=== PATIENT | male | born 1955 | race Caucasian/White ===

== ENCOUNTER 2022-05-02 22:41 | Inpatient (IN) | payer MEDICARE, SELFPAY ==
[2022-05-02 22:58] VITALS: PULSE 52
--- NOTE | 2022-05-02 22:59 | XR_ITS ---
PROCEDURE INFORMATION: Exam: XR Chest Exam date and time: 05/03/2022 12:39 AM Age: 66 years old Clinical indication: Shortness of breath; Additional info: Chf TECHNIQUE: Imaging protocol: Radiologic exam of the chest. Views: 1 view. Total images: 1 COMPARISON: No relevant prior studies available. FINDINGS: Tubes, catheters and devices: EKG leads and extrinsic cardiac pacer pads. Lungs: Peribronchial cuffing. Medial right lung base confluent airspace opacification. Mild central vascular congestion and edema. Pleural spaces: Unremarkable. No pleural effusion. No pneumothorax. Heart/Mediastinum: Borderline cardiomegaly. No mediastinal widening. Vasculature: Atherosclerotic aortic arch. Bones/joints: Unremarkable. Intraperitoneal space: Multiple surgical clips upper abdomen. IMPRESSION: 1. Acute mild CHF/volume overload. 2. Confluent right basilar opacification concerning for pneumonia.
[2022-05-02 23:00] VITALS: BP 135/90; PULSE 33; PULSE 39; RESP 14; O2SAT 96; O2SAT 98; BMI 20.4
--- NOTE | 2022-05-02 23:00 | PC.NURSE ---
Addendum entered by Jacinta Frias RN 05/02/22 23:13: pt in third degree heart block, intermittent pvc's, pac's, and ventricular beats noted, HR irregular and 30-60's, bp stable, pt mentating appropriately; pt on 2LNC, sats mid-high 90's on 2LNC Original Note: pt admitted to 217 as a direct admit from [facility], pt on tele monitor and placed zoll pads on pt and have pt on monitor mode on zoll from the icu, pt has doherty in place present on arrival, pt aphasic but is from a previous stroke, nods yes/no appropriately, pt's son at bedside and call light within reach
[2022-05-02 23:38] LABS: POC Glucose,Bedside 145 (70-110)
--- NOTE | 2022-05-02 23:38 | PC.NURSE ---
pt's son brought home meds in, citalopram 40mg tab (take one half tablet by mouth once a day), atorvastatin 80mg tab (take 1 tab by mouth once daily at night), 81mg/low dose over the counter aspirin, nortriptylin 10mg cap (take 3 capsules by mouth at bedtime for neuropathic pain)
--- NOTE | 2022-05-02 23:43 | PC.NURSE ---
JEFF Silva at bedside and notified MD Ge of pt's beats of vtach on monitor, stated to activate sugar laboratory assistant for temporary pacemaker, notified Meeting Specialist MARCO to activate sugar laboratory assistant, YAHIR's shaving pt for procedure
[2022-05-02 23:48] LABS: Basophils # 0.1 K/mm3 (0-0.2); Basophils % 0.7 % (0.1-2.0); Eosinophils # 0.1 K/mm3 (0.0-0.4); Eosinophils % 0.7 % (0.1-12.0); Hematocrit 37.9 % (42.0-52.0); Hemoglobin 12.8 g/dL (14.1-18.0); Lymphocytes # 2.2 K/mm3 (0.7-4.5); Lymphocytes % 18.7 % (10-50); Mean Corpuscular HGB Conc 33.8 g/dL (31.8-35.4); Mean Corpuscular Hemoglobin 30.7 pg (27.0-31.2); Mean Platelet Volume 9.6 fl (7.4-10.4); Monocytes # 0.7 K/mm3 (0.1-1.0); Monocytes % 5.8 % (1.7-9.3); Neutrophils # 8.5 K/mm3 (1.8-7.8); Platelet Count 256 K/mm3 (142-424); Red Blood Count 4.16 M/mm3 (4.60-6.20); Red Cell Distribution Width 15.1 % (11.5-17.5); White Blood Count 11.5 K/mm3 (4.8-10.8)
[2022-05-02 23:54] LABS: Chloride 106 mmol/L (98-107); Sodium 138 mmol/L (136-145)
[2022-05-02 23:55] LABS: Potassium 4.3 mmoL/L (3.5-5.1)
[2022-05-02 23:57] LABS: Anion Gap 12.3 mEq/L (5-15); Blood Urea Nitrogen 38 mg/dl (9-20); Carbon Dioxide 24 mmol/L (22.0-30.0); Creatinine Clearance Estimated 61 mL/min (50-200); Estimated Glomerular Filt Rate 67 ml/min (>60); GFR (African American) 81 ML/MIN (>60)
[2022-05-02 23:58] LABS: Calcium 9.1 mg/dl (8.4-10.2); Chol/HDL Ratio 2.5 (1-3.5); Cholesterol 68 mg/dl (140-200); Glucose 137 mg/dl (74-100); HDL Cholesterol 27 mg/dl (40-60); Magnesium 1.9 mg/dl (1.6-2.3); Phosphorous 4.3 mg/dl (2.5-4.5); Triglycerides 91 mg/dl (30-150); VLDL Cholesterol 18 mg/dL (0-40)
[2022-05-03] VITALS (31 sets, daily range): BP systolic 89–155; BP diastolic 51–112; PULSE 52–85; RESP 16–31; TEMP 36.4–36.9; O2SAT 83–100; BMI 20.5
[2022-05-03] LABS: INR 1.12 (0.9-1.1)
[2022-05-03 00:07] LABS: NT Pro Brain Natriuretic Pep. 7000 pg/mL (0-125)
[2022-05-03 00:09] LABS: Direct LDL Cholesterol 34.07 mg/dL (100-129)
[2022-05-03 00:10] LABS: Troponin I 0.04 ng/ml (0.00-0.034)
--- NOTE | 2022-05-03 00:15 | EXP.HP ---
History of Present Illness *Admission Date: 05/02/22 *Reason for visit:: bradycardia *History of present illness: This is a 66-year-old male with a past medical history of T2DM, HTN, CVA with residual aphasia who presented to [facility] with complaints of generalized weakness. He reportedly fell 2 days ago striking his head and has felt generally weak since. He has also had a poor appetite with poor p.o. intake. Family reports that they have insisted that he come to the hospital over the past several days but he has refused. Today he decided that he would be seen. At presentation at the outside hospital he was noted to be in third-degree heart block. Blood pressure was stable at the time of presentation to the outside hospital. He was noted to have an elevated high-sensitivity troponin of 52 and an elevated BNP of around thousand. Dr. Ge with cardiology was consulted and recommended transfer here for further evaluation. On arrival here he is in no obvious distress. Heart rate in the 30s on the bedside monitor with multiple episodes of polymorphic V. tach. Dr. Ge immediately notified and opted for immediate temporary pacemaker placement. Patient will be taken to the Jewelry Making Instructor for temporary pacer. He currently has a normal blood pressure with systolic of 110. Mildly elevated troponin at 0.04. Patient is oxygenating well on 2 L and in no distress. [facility] Disclaimer: The information contained in this section may have been updated after the patient was seen, as this information can be updated by other users. Medical History (Updated 05/03/22 @ 01:23 by Jacinta Frias RN) Alcohol abuse Cancer of pancreas Gall bladder disease Stomach tumor (benign) Stroke Tobacco use Umbilical hernia Surgical History (Updated 05/03/22 @ 01:23 by Jacinta Frias RN) H/O Whipple procedure History of intestinal surgery Hx of cholecystectomy Social History (Updated 05/03/22 @ 01:24 by Jacinta Frias RN) Smoking Status: Current every day smoker alcohol intake: former current occupational status: other Travel in the last 8 weeks: None Review of Systems Review of Systems Review of systems:: pertinent systems reviewed and negative unless documented below Constitutional Constitutional: Reports as per HPI Eyes Eyes: Reports as per HPI ENT Ears, Nose, Mouth, and Throat: Reports as per HPI *Cardiovascular Cardiovascular: Reports as per HPI *Respiratory Respiratory: Reports as per HPI *Gastrointestinal Gastrointestinal: Reports as per HPI *Genitourinary Genitourinary: Reports as per HPI *Musculoskeletal Musculoskeletal: Reports as per HPI Integumentary/Breasts Skin/Breast: Reports as per HPI *Neurologic Neurologic: Reports as per HPI Psychiatric Psychiatric: Reports as per HPI Meds Home Medications and Allergies New Prescriptions to Start Prescriptions: Allergies Allergy/AdvReac Type Severity Reaction Status Date / Time No Known Allergies Allergy Verified 05/02/22 23:01 Exam Data for Last 24 hours Vital signs and Labs for Last 24 Hours: Pulse Resp BP Pulse Ox 39 L 14 135/90 98 05/02/22 23:00 05/02/22 23:00 05/02/22 23:00 05/02/22 23:00 Laboratory Results - last 24 hr 05/02/22 23:32: POC Glucose 145 H 05/02/22 23:35: WBC 11.5 H, RBC 4.16 L, Hgb 12.8 L, Hct 37.9 L, MCV 91.0, MCH 30.7, MCHC 33.8, RDW 15.1, Plt Count 256, MPV 9.6, Neut % (Auto) 74.0, Lymph % (Auto) 18.7, Morgan % (Auto) 5.8, Eos % (Auto) 0.7, Baso % (Auto) 0.7, Neut # (Auto) 8.5 H, Lymph # (Auto) 2.2, Morgan # (Auto) 0.7, Eos # (Auto) 0.1, Baso # (Auto) 0.1 05/02/22 23:35: PT 12.0, INR 1.12 H 05/02/22 23:35: Sodium 138, Potassium 4.3, Chloride 106, Carbon Dioxide 24, Anion Gap 12.3, BUN 38 H, Creatinine 1.10, Estimated Creat Clear 61, Estimated GFR 67, Est GFR ( Amer) 81, Glucose 137 H, Calcium 9.1, Phosphorus 4.3, Magnesium 1.9, Triglycerides 91, Cholesterol 68 L, LDL Cholesterol Direct 34.07 L, VL
--- NOTE | 2022-05-03 00:24 | IR_ITS ---
APPROVED REPORT Patient Location: Inpatient Forensic Toxicologist: MONSE Metzger RT (R) PROCEDURES Right internal jugular vein access Placement of temporary transvenous pacemaker INDICATION Third-degree AV block, Polymorphic ventricular tachycardia, Symptomatic bradycardia Informed consent was obtained prior to the procedure. COMPLICATIONS None Estimated Blood Loss: Less than 10 mls TECHNIQUE One percent lidocaine was used to anesthetize the right anterior aspect of the neck. A dba needle was used to identify the right internal jugular vein. Following this a larger cannulation needle was used to cannulate the right internal jugular vein and a wire was passed into the vein. A 5 Moldovan sheath was then placed into the right internal jugular vein. Under fluoroscopic guidance a temporary transvenous pacemaker was placed in the right ventricular apex. The transvenous pacemaker was placed at 80 bpm in a VVI mode with minimum sensitivity and maximum output. Patient captured in a one-to-one fashion. The sensitivity was then decreased to where he was capturing 100% at 3 mA. The voltage was then doubled to 6 mA and then the sheath was sewn into place and the transvenous pacemaker temporarily secured. Patient tolerated the procedure well with conscious sedation IMPRESSION Successful placement of temporary transvenous pacemaker for third-degree AV block and symptomatic bradycardia including polymorphic ventricular tachycardia PLAN 1. Discontinue Cardoza catheter as to avoid a nidus for infection 2. Echocardiogram Wednesday to determine if patient requires BACTERIOLOGIST FISHERY-D versus BACTERIOLOGIST FISHERY-P. Based on patient's large cardiac silhouette under fluoroscopy and presenting with pulmonary edema I suspect patient has a significant degree of LV dysfunction. 3. Continue supportive care Electronically signed by : Best Ge MD 05/03/2022 01:12:05
--- NOTE | 2022-05-03 00:31 | PC.NURSE ---
family at bedside, pt consented for label stitcher to get temporary pacemaker per MD Ge, pt being taken down now via Party Plan Selling Distributor MARCO to label stitcher with 2LNC on oxygen tank and zoll monitor and pads in place
--- NOTE | 2022-05-03 00:52 | PC.NURSE ---
2347- Luma called at this time to call in laboratory technician team for placement of temporary pace pacemaker 235- Received call backs from Omega and Babita 2354- Received call back from Rebekah 0036- Pt taken to laboratory technician by myself and TWAN Metcalf via stretcher with continues monitoring in place. Pt handed off to laboratory technician team.
--- NOTE | 2022-05-03 01:24 | INFXCTL.NOTE ---
PT ARRIVED TO FLOOR FROM DIGITAL MARKETING SPECIALIST
--- NOTE | 2022-05-03 02:05 | PC.NURSE ---
0130-pt back from computer lab assistant with external temporary pacemaker in place in Right IJ, sheath sutured in place, sensitivity 0, output 6, rate 80millamps, VVI mode, pt had 2mg of versed and 50mcg of fentanyl, HR paced at 82 with BBB upon arrival, pt on 2LNC and sats 96%, pt's family at bedside, pt restless from sedation
--- NOTE | 2022-05-03 02:17 | PC.NURSE ---
pt's son leaving for night, Olvin Rhodes,
[2022-05-03 03:51] LABS: Troponin I 0.05 ng/ml (0.00-0.034)
[2022-05-03 05:39] LABS: POC Glucose,Bedside 141 (70-110)
[2022-05-03 05:58] LABS: Troponin I 0.08 ng/ml (0.00-0.034)
[2022-05-03 06:46] LABS: Coronavirus 19, PCR Not Detected (NotDetected); Influenza A, PCR Not Detected (NotDetected); Influenza B, PCR Not Detected (NotDetected)
[2022-05-03 07:15] LABS: Basophils # 0.1 K/mm3 (0-0.2); Basophils % 0.5 % (0.1-2.0); Eosinophils # 0.1 K/mm3 (0.0-0.4); Eosinophils % 0.4 % (0.1-12.0); Hematocrit 43.2 % (42.0-52.0); Hemoglobin 13.8 g/dL (14.1-18.0); Lymphocytes # 1.9 K/mm3 (0.7-4.5); Lymphocytes % 11.2 % (10-50); Mean Corpuscular HGB Conc 31.8 g/dL (31.8-35.4); Mean Corpuscular Hemoglobin 29.4 pg (27.0-31.2); Mean Corpuscular Volume 92.4 fl (80-94); Mean Platelet Volume 9.2 fl (7.4-10.4); Monocytes % 5.9 % (1.7-9.3); Neutrophils # 13.7 K/mm3 (1.8-7.8); Platelet Count 259 K/mm3 (142-424); Red Blood Count 4.68 M/mm3 (4.60-6.20); Red Cell Distribution Width 15.4 % (11.5-17.5); White Blood Count 16.7 K/mm3 (4.8-10.8)
[2022-05-03 07:16] LABS: MANUAL DIFFERENTIAL MANUAL DIFFERENTIAL (MANUAL DIFF)
[2022-05-03 07:23] LABS: Anion Gap 10.2 mEq/L (5-15); Blood Urea Nitrogen 34 mg/dl (9-20); Calcium 8.6 mg/dl (8.4-10.2); Carbon Dioxide 26 mmol/L (22.0-30.0); Chloride 104 mmol/L (98-107); Creatinine Clearance Estimated 68 mL/min (50-200); Estimated Glomerular Filt Rate 75 ml/min (>60); GFR (African American) 90 ML/MIN (>60); Glucose 127 mg/dl (74-100); Potassium 4.2 mmoL/L (3.5-5.1); Sodium 136 mmol/L (136-145)
[2022-05-03 07:28] LABS: Lymphocytes % 15 % (10-50); Monocytes % 9 % (2-9); Neutrophils % 76 % (42-76); Platelet Estimate Normal; RBC Morphology Normal; Total Cells Counted 100
[2022-05-03 11:37] LABS: POC Glucose,Bedside 133 (70-110)
[2022-05-03 18:23] LABS: POC Glucose,Bedside 156 (70-110)
[2022-05-03 18:23] LABS: POC Glucose,Bedside 168 (70-110)
[2022-05-04] VITALS (26 sets, daily range): BP systolic 77–141; BP diastolic 51–100; PULSE 80–102; RESP 16–22; TEMP 36.4–36.9; O2SAT 90–97; BMI 19.5; BMI 19.4
--- NOTE | 2022-05-04 | IR_ITS ---
APPROVED REPORT Patient Location: Inpatient Code Number Stamper: MONSE Atkins RT (R) PROCEDURES 1. Pocket formation for biventricular pacemaker generator with cardiac resynchronization/defibrillator therapy. 2. Placement of atrial sensing and pacing lead into the right atrial appendage. 3. Placement of a right ventricular sensing, pacing and shocking lead in the right ventricular apex. 4. Placement of left ventricular sensing pacing lead via the coronary sinus. 5. Permanent cardiac resynchronization therapy with ICD implantation/biventricular pacemaker. INDICATION Systolic Congestive Heart Failure, ejection <35%, Wide QRS >120ms, Woodson Heart Assoication Class 3 Congestive Heart Failure, 3RD degree heart block Informed consent was obtained prior to the procedure. COMPLICATIONS None Estimated Blood Loss: less than 10 ml TECHNIQUE 1% Lidocaine with epinephrine used to anesthetized the left anterior aspect of the chest. Scalpel was used to make the initial cutaneous incision while electrocautery was used to dissect down tinto the fascia. The fascia was lifted off the pectoralis muscle and digitally manipulated creating a pocket for the defibrillator. The patient was then placed in Trendelenburg position and the subclavian vein was accessed 3 times via the Selinger technique. A 8 Malian sheath was placed under fluoroscopic guidance into the subclavian vein. The dilator was removed from the sheath. Using fluoroscopic guidance, the ventricular lead was placed into the right ventricular apex, screwed and secured into place. Electronic interrogation proved acceptable thresholds and voltage within the lead. Using 3-0 silk, the ventricular lead was then secured into place and sheath peeled away. Following this, a 9.5 Malian sheath and dilator was then placed over one of the wires while keeping the other wire in place within the subclavian vein. The dilator was removed from the sheath. Using fluoroscopic guidance, contrast was used to visualize the coronary sinus, the left ventricular lead was placed into the coronary sinus. Electronic interrogation proved acceptable thresholds and voltage within the lead. Using 3-0 silk, the left ventricular lead was then secured into place and sheath peeled away.An additional 6 Malian fresh sheath and dilator was placed over the existing wire. Using fluoroscopic guidance, the atrial lead was then placed into the right atrial appendage and screwed and secured in place. Electrical interrogation demonstrated acceptable thresholds and voltage number. The atrial lead was then secured into place using 3-0 silk and sheath peeled away. 1 gram of Ancef was used to flush the pocket. All 3 leads were connected to generator and tested via computer. The defibrillator then secured to the fascia. Monocryl was used to close the subcutaneous layers while marjorie were used to close the cutaneous layer. A pressure dressing was placed and the patient was transferred to the postop holding area in stable condition for postoperative care. INTERROGATION Generator Model number: [id number] Generator Serial number: [id number] Chronic Atrial lead model number: [id number]/52 Chronic Atrial lead serial number: [id number] Chronic Right Ventricular lead model number: [id number] Chronic Right Ventricular lead serial number: [id number] Left Ventricular lead model number: 1458Q/86 Left Ventricular lead serial number: [id number] R-wave: >12 mV 0.5 v @0.5 MS Impedence: 500 Ohms Threshold: 4.4 V Pacing Parameters: Mode: DDDR Base/Max Track: 70/120 bpm ICD Rate Cutoffs: VT: 175 bpm. 2.5 sec, AT
--- NOTE | 2022-05-04 00:32 | PC.NURSE ---
COURTESY ROUND PATIENT AWAKE LAYING BED . TRASH AND LINENS EMPTIED. WATER PITCHER REFILLED
--- NOTE | 2022-05-04 02:00 | PC.NURSE ---
0200 provider gretta Silva., on floor making rounds and was informed of pt with low b/p's noted 84-87 sbp and 46-59 dbp as documented, no new orders received at this time, pt is alert and oriented to name, no acute distress, paced rythm.
[2022-05-04 05:50] LABS: POC Glucose,Bedside 94 (70-110)
[2022-05-04 06:28] LABS: Basophils # 0.1 K/mm3 (0-0.2); Basophils % 0.7 % (0.1-2.0); Eosinophils # 0.4 K/mm3 (0.0-0.4); Hematocrit 41.9 % (42.0-52.0); Hemoglobin 13.8 g/dL (14.1-18.0); Lymphocytes % 25.1 % (10-50); Mean Corpuscular HGB Conc 32.9 g/dL (31.8-35.4); Mean Corpuscular Hemoglobin 29.5 pg (27.0-31.2); Mean Corpuscular Volume 89.6 fl (80-94); Mean Platelet Volume 9.1 fl (7.4-10.4); Monocytes # 0.8 K/mm3 (0.1-1.0); Monocytes % 6.6 % (1.7-9.3); Neutrophils # 7.8 K/mm3 (1.8-7.8); Neutrophils % 64.6 % (37.0-80.0); Platelet Count 271 K/mm3 (142-424); Red Blood Count 4.67 M/mm3 (4.60-6.20); Red Cell Distribution Width 15.2 % (11.5-17.5); White Blood Count 12.1 K/mm3 (4.8-10.8)
[2022-05-04 06:39] LABS: Alanine Aminotransferase 26 U/L (12-78); Albumin Level 3.4 g/dl (3.5-5.0); Albumin/Globulin Ratio 1.3 (1.1-1.8); Alkaline Phosphatase 139 U/L (38-126); Anion Gap 11.5 mEq/L (5-15); Aspartate Amino Transferase 27 U/L (17-59); Bilirubin,Total 1.6 mg/dl (0.2-1.3); Blood Urea Nitrogen 27 mg/dl (9-20); Calcium 8.1 mg/dl (8.4-10.2); Carbon Dioxide 28 mmol/L (22.0-30.0); Chloride 100 mmol/L (98-107); Creatinine Clearance Estimated 64 mL/min (50-200); Estimated Glomerular Filt Rate 84 ml/min (>60); GFR (African American) 102 ML/MIN (>60); Globulin 2.6 g/dL (1.3-3.2); Glucose 88 mg/dl (74-100); Magnesium 1.8 mg/dl (1.6-2.3); Phosphorous 3.5 mg/dl (2.5-4.5); Potassium 3.5 mmoL/L (3.5-5.1); Sodium 136 mmol/L (136-145)
--- NOTE | 2022-05-04 08:28 | CA_ITS ---
APPROVED REPORT EXAM: Comprehensive 2D, Doppler, and color-flow Echocardiogram Stenographic Court Reporter: Elizabeth Mercer RVT Ht: 5 ft 10 in Wt: 139lbs BSA: 1.79 BP: 135/90 mmHg Indications: 3RD DEGREE AV BLOCK,TEMP PACER IN PLACE,BRADYCARDIA,HX CVA,DM,SMOKER,CHF,HTN,ALCOHOL ABUSE TDS-PT FLAT ON BLACK AND BODY HABITUS 2D Dimensions LVOT 2.23 cm (M/F) 1.5-2.5 LA Volume 79.10 mL LA Volume Index 44.19 mL/m2 (M/F) 16-34 M-Mode Dimensions RVDd 3.30 cm (0.9-2.6) LA Diam 4.17 cm (1.9-4.0) LVDd 6.05 cm (3.5-5.7) Ao Diam 3.40 cm (2.0-3.7) LVDs 5.31 cm (3.5-5.7) IVSd 0.34 cm (0.6-1.1) PWd 0.39 cm (0.6-1.1) EF (Teich) 25.90% FS 12.20% EDV (Teich) 183.40 mL TAPSE 2.00 (<1.7) ESV (Teich) 135.90 mL LV Diastology E Decel Time 150.00 (160-240 msec) E/A Ratio 1.1 MED E' 3.30 (< 7 cm/sec) E'/MED E' Ratio 18.58 (>14) LAT E' 4.90 (<10 cm/sec) E/LAT E' Ratio 12.51 (>14) Aortic Valve AO Peak GR. 2.10 mmHg Mitral Valve MV E Max Jimmy. 61.00 (40-130 cm/s) MV A Velocity 54.00 (40-130 cm/s) E/A Ratio 1.14 MV Decel. Time 150.00 (160-240 ms) MV PHT 44.00 ms Pulmonary Valve PV Peak Velocity 80.00 (50-150 cm/s) Left Ventricle Technically very difficult study because of the patient factors and poor acoustic windows. Left atrium is mildly enlarged, left ventricle is normal size mild concentric left ventricular hypertrophy, estimated ejection fraction approximately 45%, there is abnormal septal motion, diastolic parameters are inconclusive. Right Ventricle Right atrium and right ventricular mildly enlarged with normal contractility, there is a pacemaker lead seen in right ventricle. Aortic Valve Aortic valve is minimally thickened and calcified without aortic stenosis aortic insufficiency. Mitral Valve Mitral valve is minimally thickened, there is trace mitral regurgitation. Tricuspid Valve Tricuspid valve grossly normal, there is trace tricuspid regurgitation, tricuspid regurgitation jet velocity is inadequate for calculation of the right ventricular systolic pressure. Pulmonic Valve Pulmonic valve is poorly visualized. Great Vessels Aortic root is normal size. Inferior vena cava is poorly visualized. Pericardium No significant pericardial effusion noted. Conclusion 1. Technically difficult and limited study. Mild biatrial normal, normal left ventricular size, estimated ejection fraction 45%, there is abnormal septal motion, diastolic parameters are inconclusive. 2. Mildly enlarged right ventricle with normal contractility, pacemaker leads in the right ventricle. 3. Trace mitral and tricuspid regurgitation. 4. No significant pericardial effusion noted. 5. Inferior vena cava is poorly visualized. Electronically signed by : Gm Mendez MD 05/05/2022 06:08:04
--- NOTE | 2022-05-04 10:14 | PC.NURSE ---
per dr reyes holding lasix until after pacemaker procedure. patient bp has been on lower end.
--- NOTE | 2022-05-04 10:22 | EXP.CARD.CON ---
History of Present Illness History of Present Illness Consult date: 05/04/22 Requesting physician: Swapna Ge Chief complaint: 3rd degree av block History of present illness: 66 year old white male with past medical hx significant for DM II, HTN, CVA with residual aphasia presented to [facility] with complaint of generalized weakness and fall over the past week associated with decreased po intake. Family encouraged patient to come to ER for evaluation but patient refused initially. Upon presentation to ER patient was found to be in complete heart block. High sensitivity trop was elevated to 52 and BNP 1000. Patient was transferred to [facility] for cardiology consult. Upon presentation [facility] patient was noted to be in 3rd degree heart block and was having multiple episodes of polymorphic v tach. Patient was taken to sanitation laborer and had temporary pacemaker placed. Initial trop here was 0.04 and trended up to 0.08. patient denies any complaints at this time. [facility] Disclaimer: The information contained in this section may have been updated after the patient was seen, as this information can be updated by other users. Medical History (Updated 05/03/22 @ 01:23 by Jacinta Frias RN) Alcohol abuse Cancer of pancreas Gall bladder disease Stomach tumor (benign) Stroke Tobacco use Umbilical hernia Surgical History (Updated 05/03/22 @ 01:23 by Jacinta Frias RN) H/O Whipple procedure History of intestinal surgery Hx of cholecystectomy Social History (Updated 05/04/22 @ 13:38 by Everett Figueroa CRNA) Smoking Status: Current every day smoker alcohol intake: former substance use type: denies use current occupational status: other Travel in the last 8 weeks: None Review of Systems Review of Systems Review of systems:: pertinent systems reviewed and negative unless documented below *Neurologic Neurologic: Reports as per HPI Exam Data for Last 24 hours Vital signs and Labs for Last 24 Hours: Temp Pulse Resp BP Pulse Ox FiO2 97.9 F 86 18 99/74 L 91 L 50 05/04/22 08:00 05/04/22 10:00 05/04/22 10:00 05/04/22 10:00 05/04/22 10:00 05/03/22 08:00 Laboratory Results - last 24 hr 05/03/22 11:28: POC Glucose 133 H 05/03/22 15:16: POC Glucose 156 H 05/03/22 16:19: POC Glucose 168 H 05/04/22 05:43: POC Glucose 94 05/04/22 05:44: WBC 12.1 H D, RBC 4.67, Hgb 13.8 L, Hct 41.9 L, MCV 89.6, MCH 29.5, MCHC 32.9, RDW 15.2, Plt Count 271, MPV 9.1, Neut % (Auto) 64.6, Lymph % (Auto) 25.1, Terry % (Auto) 6.6, Eos % (Auto) 3.0, Baso % (Auto) 0.7, Neut # (Auto) 7.8, Lymph # (Auto) 3.0, Terry # (Auto) 0.8, Eos # (Auto) 0.4, Baso # (Auto) 0.1 05/04/22 05:44: Sodium 136, Potassium 3.5, Chloride 100, Carbon Dioxide 28, Anion Gap 11.5, BUN 27 H, Creatinine 0.90, Estimated Creat Clear 64, Estimated GFR 84, Est GFR ( Amer) 102, Glucose 88 D, Calcium 8.1 L, Phosphorus 3.5, Magnesium 1.8, Total Bilirubin 1.6 H, AST 27, ALT 26, Alkaline Phosphatase 139 H, Total Protein 6.0 L, Albumin 3.4 L, Globulin 2.6, Albumin/Globulin Ratio 1.3 I & O for Last 24 hours: Intake & Output 05/01/22 05/02/22 05/03/22 05/04/22 23:59 23:59 23:59 23:59 Intake Total 600 / 600 0 / 0 Output Total 3550 / 3800 370 / 370 Balance -2950 / -3200 -370 / -370 Weight 146 lb 5 oz 147 lb 4 oz 139 lb 4 oz Constitutional Constitutional: no acute distress *Routine Respiratory Exam Respiratory: Present CTA bilaterally and symmetric chest movement *Routine Cardiovascular Exam Cardiovascular: Present RRR, Normal S1 and Normal S2 *Routine Abdominal Exam Abdominal: Present soft and normoactive bowel sounds; Absent tenderness *Routine Extremities Exam Extremities: Present full ROM and normal capillary refill; Absent edema *Routine Skin Exam Skin: Present intact, dry and warm Detailed Neck Exam: Thyroids Thyroid: Absent bruit Meds Home Medications and Allergies Home Medications Medication Instructions Recorded Confirmed Type
[2022-05-04 12:08] LABS: Chloride 102 mmol/L (98-107)
[2022-05-04 12:09] LABS: Potassium 3.3 mmoL/L (3.5-5.1); Sodium 135 mmol/L (136-145)
[2022-05-04 12:12] LABS: Anion Gap 9.3 mEq/L (5-15); Blood Urea Nitrogen 25 mg/dl (9-20); Calcium 8.1 mg/dl (8.4-10.2); Carbon Dioxide 27 mmol/L (22.0-30.0); Creatinine Clearance Estimated 64 mL/min (50-200); Estimated Glomerular Filt Rate 84 ml/min (>60); GFR (African American) 102 ML/MIN (>60); Glucose 92 mg/dl (74-100)
[2022-05-04 13:14] LABS: POC Glucose,Bedside 95 (70-110)
--- NOTE | 2022-05-04 13:37 | EXP.ANES.CKL ---
[facility] Disclaimer: The information contained in this section may have been updated after the patient was seen, as this information can be updated by other users. Medical History (Updated 05/03/22 @ 01:23 by Jacinta Frias RN) Alcohol abuse Cancer of pancreas Gall bladder disease Stomach tumor (benign) Stroke Tobacco use Umbilical hernia Surgical History (Updated 05/03/22 @ 01:23 by Jacinta Frias RN) H/O Whipple procedure History of intestinal surgery Hx of cholecystectomy Social History (Updated 05/03/22 @ 01:24 by Jacinta Frias RN) Smoking Status: Current every day smoker alcohol intake: former substance use type: denies use current occupational status: other Travel in the last 8 weeks: None [facility] Anesthesia Checklist Patient Identification Patient Identification: Arm Band Structural Data Admitted From: Inpatient Planned Operative Procedure/s: Biventricular Pacemaker/Defibrillator Placement Consent for Planned Operative Procedure(s) Verified: Yes Verified Documents: Surgical Consent and History and Physical NPO Status Verified Time NPO: 00:00 Additional verifications Anesthesia Reactions: No Airway Assessment C-Spine Mobility Assessed: Yes TMJ Mobility Assessed: Yes Dentition: Edentulous Neurological Assessment Level of Consciousness: Awake and Appropriate (Pt unable to talk but able to communicate by nodding and answering yes/no questions) Anesthesia Plan Anesthesia Risk discussed: Yes Anesthesia Plan: Verified ASA Class: IV Anesthesia Type: MAC
--- NOTE | 2022-05-04 13:38 | PC.NURSE ---
Report from grant gonzalez
--- NOTE | 2022-05-04 14:13 | PC.NURSE ---
Patient gone to open hearth laborer. Consent is not signed. Asked patient to verify name, he is aphasic and did not reply. Telephone number for son will not connect. Information given to the open hearth laborer RN.
--- NOTE | 2022-05-04 16:32 | XR_ITS ---
PROCEDURE INFORMATION: Exam: XR Chest Exam date and time: 05/04/2022 4:49 PM Age: 66 years old Clinical indication: Device placement; Cardiac defibrillator placementor adjustment; Additional info: Confirm pacemaker/aid placement TECHNIQUE: Imaging protocol: Radiologic exam of the chest. Views: 1 view. Total images: 1 COMPARISON: CR XR CHEST PORTABLE 05/03/2022 12:39 AM FINDINGS: Tubes, catheters and devices: AICD projects in satisfactory location. Lungs: Atelectatic and/or early infiltrative changes noted within the right lower lobe. Pleural spaces: No evidence of pneumothorax. No pleural effusions. Heart/Mediastinum: Unremarkable. No cardiomegaly. Diaphragm: There is nonspecific elevation of the right hemidiaphragm. Bones/joints: Unremarkable. IMPRESSION: 1. AICD projects in satisfactory location. 2. Atelectatic and/or early infiltrative changes noted within the right lower lobe. 3. No evidence of pneumothorax. 4. No pleural effusions.
--- NOTE | 2022-05-04 17:08 | PC.NURSE ---
report called from laborer golf course
--- NOTE | 2022-05-04 17:17 | PC.NURSE ---
Patient returned to room from labor and delivery nurse.
--- NOTE | 2022-05-04 19:30 | PC.NURSE ---
Called Dr. Ge. Patient pacer site dressing saturated, soft buldge at pacer placement site. Per Dr. Ge, firm manual pressure held for 15 minutes. No new drainage or bleeding noted to site.
--- NOTE | 2022-05-04 20:13 | EXP.ACUTE.PN ---
Subjective *Date: 05/04/22 *Time: 10:13 Interval history: Patient is pleasant on interview. Denies any chest pain. Heart currently paced with external pacemaker. Stable on room air. No nausea, vomiting, confusion. Expressive aphasia at baseline. Medical Exam Vital signs and Labs for Last 24 Hours: Vital Signs Temp Pulse Pulse Resp BP Pulse Ox 05/04/22 19:56 95 05/04/22 19:45 98.4 F 91 H 18 141/100 H 95 05/04/22 19:15 87 20 124/93 H 97 05/04/22 18:52 90 19 113/79 94 L 05/04/22 18:15 89 19 113/85 93 L 05/04/22 18:45 88 17 113/75 95 05/04/22 17:45 97.9 F 88 18 120/75 94 L 05/04/22 17:00 100 H 19 99/76 L 92 L 05/04/22 17:30 88 16 120/85 93 L 05/04/22 17:15 98.0 F 92 H 19 101/51 L 92 L 05/04/22 17:09 95 H 20 88/62 L 92 L 05/04/22 12:00 80 05/04/22 12:00 98.1 F 05/04/22 08:00 80 05/04/22 10:00 86 18 99/74 L 91 L 05/04/22 08:00 97.9 F 82 18 77/56 L 91 L 05/04/22 08:00 93 L 05/04/22 08:00 97.5 F L 05/04/22 06:00 83 16 94/56 L 94 L 05/04/22 04:00 80 05/04/22 04:00 98.5 F 05/04/22 05:00 82 16 90/62 L 94 L 05/04/22 04:00 83 95 05/04/22 04:00 83 16 91/66 L 93 L 05/04/22 00:00 80 05/04/22 03:00 83 20 87/59 L 93 L 05/04/22 02:00 83 19 86/65 L 94 L 05/04/22 01:00 83 20 115/69 90 L 05/04/22 00:00 97.8 F 05/04/22 00:00 83 19 96/65 L 93 L 05/03/22 23:00 83 18 89/65 L 94 L 05/03/22 22:00 82 18 108/62 L 91 L 05/03/22 21:00 83 18 112/72 96 05/03/22 20:45 97.6 F Intake and Output 05/04/22 05/04/22 05/04/22 07:59 15:59 23:59 Intake Total 0 / 0 Output Total 250 / 370 120 / 370 Balance -250 / -370 -120 / -370 Intake: Intake, Oral Amount 0 / 0 Output: Output, Urine Amount 0 / 0 Output, Urine Amount (Catheter) 250 / 370 120 / 370 Cardoza 250 / 370 120 / 370 Other: Number of Unmeasured Voids 0 Weight 63.163 kg 63.1 kg Patient Weight 05/04/22 23:59 Weight 63.1 kg Laboratory Results - last 24 hr 05/04/22 05:43: POC Glucose 94 05/04/22 05:44: WBC 12.1 H D, RBC 4.67, Hgb 13.8 L, Hct 41.9 L, MCV 89.6, MCH 29.5, MCHC 32.9, RDW 15.2, Plt Count 271, MPV 9.1, Neut % (Auto) 64.6, Lymph % (Auto) 25.1, [place] % (Auto) 6.6, Eos % (Auto) 3.0, Baso % (Auto) 0.7, Neut # (Auto) 7.8, Lymph # (Auto) 3.0, [place] # (Auto) 0.8, Eos # (Auto) 0.4, Baso # (Auto) 0.1 05/04/22 05:44: Sodium 136, Potassium 3.5, Chloride 100, Carbon Dioxide 28, Anion Gap 11.5, BUN 27 H, Creatinine 0.90, Estimated Creat Clear 64, Estimated GFR 84, Est GFR ( Amer) 102, Glucose 88 D, Calcium 8.1 L, Phosphorus 3.5, Magnesium 1.8, Total Bilirubin 1.6 H, AST 27, ALT 26, Alkaline Phosphatase 139 H, Total Protein 6.0 L, Albumin 3.4 L, Globulin 2.6, Albumin/Globulin Ratio 1.3 05/04/22 11:50: Sodium 135 L, Potassium 3.3 L, Chloride 102, Carbon Dioxide 27, Anion Gap 9.3, BUN 25 H, Creatinine 0.90, Estimated Creat Clear 64, Estimated GFR 84, Est GFR ( Amer) 102, Glucose 92, Calcium 8.1 L 05/04/22 12:17: POC Glucose 95 I & O for Labs for Last 24 Hours: Intake & Output 05/01/22 05/02/22 05/03/22 05/04/22 23:59 23:59 23:59 23:59 Intake Total 600 / 600 0 / 0 Output Total 3550 / 3800 370 / 370 Balance -2950 / -3200 -370 / -370 Weight 66.366 kg 66.791 kg 63.1 kg Constitutional: Present no acute distress Head: Present atraumatic and normocephalic ENT: Present normal exam Neck: Present normal inspection Comment:: pacer wires in right neck Respiratory: Present normal respiratory effort; Absent accessory muscle use, rhonchi, wheezes or crackles Cardiac: Present Reg Rate and Rhythm GI: Present soft and normal bowel sounds; Absent distention or tenderness Extremities: Present normal inspection and full ROM Skin: Present intact; Absent erythema Neuro: Present Grossly Intact, alert, awake and moves all extre
[2022-05-05] VITALS: PULSE 100
[2022-05-05 00:25] LABS: POC Glucose,Bedside 110 (70-110)
[2022-05-05 01:04] LABS: POC Glucose,Bedside 145 (70-110)
[2022-05-05 04:00] VITALS: BP 106/78; PULSE 95; PULSE 98; RESP 22; TEMP 36.8; O2SAT 92; BMI 19.4
[2022-05-05 05:31] LABS: POC Glucose,Bedside 113 (70-110)
--- NOTE | 2022-05-05 06:29 | PC.NURSE ---
No active bleeding noted to pacer site since manual pressure held at beginning of shift. VSS. Pt c/o pain at pacer site 1x and Percocet 5 was administered. Pt states favorable results. Pt had used urinal independently t/o night. Call light within reach.
[2022-05-05 06:35] LABS: Basophils # 0.1 K/mm3 (0-0.2); Basophils % 0.5 % (0.1-2.0); Platelet Count 234 K/mm3 (142-424); White Blood Count 12.2 K/mm3 (4.8-10.8)
[2022-05-05 06:43] LABS: Alanine Aminotransferase 19 U/L (12-78); Albumin Level 3.1 g/dl (3.5-5.0); Albumin/Globulin Ratio 1.2 (1.1-1.8); Alkaline Phosphatase 121 U/L (38-126); Anion Gap 7.6 mEq/L (5-15); Aspartate Amino Transferase 27 U/L (17-59); Bilirubin,Total 1.1 mg/dl (0.2-1.3); Blood Urea Nitrogen 24 mg/dl (9-20); Calcium 7.6 mg/dl (8.4-10.2); Carbon Dioxide 25 mmol/L (22.0-30.0); Chloride 103 mmol/L (98-107); Creatinine Clearance Estimated 64 mL/min (50-200); Estimated Glomerular Filt Rate 112 ml/min (>60); GFR (African American) 136 ML/MIN (>60); Globulin 2.5 g/dL (1.3-3.2); Glucose 108 mg/dl (74-100); Phosphorous 3.3 mg/dl (2.5-4.5); Potassium 3.6 mmoL/L (3.5-5.1); Sodium 132 mmol/L (136-145); Total Protein,Serum 5.6 g/dl (6.3-8.2)
[2022-05-05 06:44] LABS: Eosinophils # 0.2 K/mm3 (0.0-0.4); Lymphocytes % 16.7 % (10-50); Mean Corpuscular HGB Conc 33.2 g/dL (31.8-35.4); Mean Corpuscular Hemoglobin 30.1 pg (27.0-31.2); Mean Corpuscular Volume 90.6 fl (80-94); Mean Platelet Volume 8.8 fl (7.4-10.4); Monocytes # 0.9 K/mm3 (0.1-1.0); Monocytes % 7.6 % (1.7-9.3); Neutrophils % 73.3 % (37.0-80.0); Red Blood Count 4.19 M/mm3 (4.60-6.20)
[2022-05-05 06:45] LABS: Hemoglobin 12.6 g/dL (14.1-18.0)
[2022-05-05 07:43] VITALS: BP 115/75; PULSE 93; RESP 17; TEMP 36.8; O2SAT 92
[2022-05-05 08:00] VITALS: PULSE 88
--- NOTE | 2022-05-05 08:51 | EXP.DC.SUM ---
General Admission date:: 05/02/22 Discharge date: 05/05/22 HPI HPI HPI: This is a 66-year-old male with a past medical history of T2DM, HTN, CVA with residual aphasia who presented to [facility] with complaints of generalized weakness. He reportedly fell 2 days ago striking his head and has felt generally weak since. He has also had a poor appetite with poor p.o. intake. Family reports that they have insisted that he come to the hospital over the past several days but he has refused. Today he decided that he would be seen. At presentation at the outside hospital he was noted to be in third-degree heart block. Blood pressure was stable at the time of presentation to the outside hospital. He was noted to have an elevated high-sensitivity troponin of 52 and an elevated BNP of around thousand. Dr. Ge with cardiology was consulted and recommended transfer here for further evaluation. On arrival here he is in no obvious distress. Heart rate in the 30s on the bedside monitor with multiple episodes of polymorphic V. tach. Dr. Ge immediately notified and opted for immediate temporary pacemaker placement. Patient will be taken to the Dry Heat Cabinet Attendant for temporary pacer. He currently has a normal blood pressure with systolic of 110. Mildly elevated troponin at 0.04. Patient is oxygenating well on 2 L and in no distress. Hospital Course Hospital Course Hospital Course: 66-year-old male tolerated external pacer well, admitted for placement of BiV given third-degree heart block.? Taken to labor standards director for pacemaker placement 05/05.? Problems addressed as follows: Third-degree heart block Heart failure with reduced ejection fraction Admitted with polymorphic V. tach. Temporary pace maker placed by cardiology. Remained stable with paced rhythm. Cardiology consulted, appreciate their recommendations.? MAST MAKER-D placed 05/05. Heart rate well controlled. Continue medications lisinopril 2.5 mg daily, bisoprolol 5 mg daily, Lipitor 80 mg daily, aspirin 81 mg daily. Diuresed well with Lasix daily. Echocardiogram gram obtained, preliminary ejection fraction of 20 to 25%. Consider addition of aldactone and jardiance later. History of CVA Mood disorder Continued home nortriptyline, citalopram, statin. Improved rate control. Stable for discharge home. Follow-up with cardiology in coming weeks for further evaluation and adjustment. Exam Data for Last 24 hours Vital signs and Labs for Last 24 Hours: Temp Pulse Resp BP Pulse Ox FiO2 98.3 F 93 H 17 115/75 92 L 50 05/05/22 07:43 05/05/22 07:43 05/05/22 07:43 05/05/22 07:43 05/05/22 07:43 05/03/22 08:00 Laboratory Results - last 24 hr 05/03/22 22:38: POC Glucose 145 H 05/04/22 11:50: Sodium 135 L, Potassium 3.3 L, Chloride 102, Carbon Dioxide 27, Anion Gap 9.3, BUN 25 H, Creatinine 0.90, Estimated Creat Clear 64, Estimated GFR 84, Est GFR ( Amer) 102, Glucose 92, Calcium 8.1 L 05/04/22 12:17: POC Glucose 95 05/04/22 21:17: POC Glucose 110 05/05/22 05:24: POC Glucose 113 H 05/05/22 05:37: WBC 12.2 H, RBC 4.19 L, Hgb 12.6 L, Hct 38.0 L, MCV 90.6, MCH 30.1, MCHC 33.2, RDW 15.0, Plt Count 234, MPV 8.8, Neut % (Auto) 73.3, Lymph % (Auto) 16.7, [place] % (Auto) 7.6, Eos % (Auto) 2.0, Baso % (Auto) 0.5, Neut # (Auto) 9.0 H, Lymph # (Auto) 2.0, [place] # (Auto) 0.9, Eos # (Auto) 0.2, Baso # (Auto) 0.1 05/05/22 05:37: Sodium 132 L, Potassium 3.6, Chloride 103, Carbon Dioxide 25, Anion Gap 7.6, BUN 24 H, Creatinine 0.70 D, Estimated Creat Clear 64, Estimated GFR 112, Est GFR ( Amer) 136 D, Glucose 108 H, Calcium 7.6 L, Phosphorus 3.3, Total Bilirubin 1.1, AST 27, ALT 19 D, Alkaline Phosphatase 121, Total Protein 5.6 L, Albumin 3.1 L, Globulin 2.5, Albumin/Globulin Ratio 1.2 I & O for Last 24 hours: Intake & Output 05/02/22 05/03/22 05/04/22 05/05/22 23:59 23:59 23:59 23:59 Intake Total 600 / 600 0 / 0 240 / 240 Output Total 3550 / 3800 580 / 580 150 / 150 Balance -2950 / -3200
--- NOTE | 2022-05-05 09:17 | EXP.CARD.PN ---
Subjective Subjective Date: 05/05/22 Time: 08:30 Principal diagnosis: 3rd degree heart block Interval history: Doing well s/p supervisor mold shop-d placement. Small hematoma noted to site but no bleeding. AM labs reviewed. patient has not complaints. Exam Data for Last 24 hours Vital signs and Labs for Last 24 Hours: Temp Pulse Resp BP Pulse Ox FiO2 98.3 F 93 H 17 115/75 92 L 50 05/05/22 07:43 05/05/22 07:43 05/05/22 07:43 05/05/22 07:43 05/05/22 07:43 05/03/22 08:00 Laboratory Results - last 24 hr 05/03/22 22:38: POC Glucose 145 H 05/04/22 11:50: Sodium 135 L, Potassium 3.3 L, Chloride 102, Carbon Dioxide 27, Anion Gap 9.3, BUN 25 H, Creatinine 0.90, Estimated Creat Clear 64, Estimated GFR 84, Est GFR ( Amer) 102, Glucose 92, Calcium 8.1 L 05/04/22 12:17: POC Glucose 95 05/04/22 21:17: POC Glucose 110 05/05/22 05:24: POC Glucose 113 H 05/05/22 05:37: WBC 12.2 H, RBC 4.19 L, Hgb 12.6 L, Hct 38.0 L, MCV 90.6, MCH 30.1, MCHC 33.2, RDW 15.0, Plt Count 234, MPV 8.8, Neut % (Auto) 73.3, Lymph % (Auto) 16.7, [place] % (Auto) 7.6, Eos % (Auto) 2.0, Baso % (Auto) 0.5, Neut # (Auto) 9.0 H, Lymph # (Auto) 2.0, [place] # (Auto) 0.9, Eos # (Auto) 0.2, Baso # (Auto) 0.1 05/05/22 05:37: Sodium 132 L, Potassium 3.6, Chloride 103, Carbon Dioxide 25, Anion Gap 7.6, BUN 24 H, Creatinine 0.70 D, Estimated Creat Clear 64, Estimated GFR 112, Est GFR ( Amer) 136 D, Glucose 108 H, Calcium 7.6 L, Phosphorus 3.3, Total Bilirubin 1.1, AST 27, ALT 19 D, Alkaline Phosphatase 121, Total Protein 5.6 L, Albumin 3.1 L, Globulin 2.5, Albumin/Globulin Ratio 1.2 I & O for Last 24 hours: Intake & Output 05/02/22 05/03/22 05/04/22 05/05/22 23:59 23:59 23:59 23:59 Intake Total 600 / 600 0 / 0 240 / 240 Output Total 3550 / 3800 580 / 580 150 / 150 Balance -2950 / -3200 -580 / -580 90 / 90 Weight 146 lb 5 oz 147 lb 4 oz 139 lb 1.787 oz 139 lb Constitutional Constitutional: no acute distress *Routine Respiratory Exam Respiratory: Present CTA bilaterally and symmetric chest movement *Routine Cardiovascular Exam Cardiovascular: Present RRR, Normal S1 and Normal S2 Comments: Implant site-small hematoma, no active bleeding. *Routine Abdominal Exam Abdominal: Present soft and normoactive bowel sounds; Absent tenderness *Routine Extremities Exam Extremities: Present full ROM and normal capillary refill; Absent edema *Routine Skin Exam Skin: Present intact, dry and warm Detailed Neck Exam: Thyroids Thyroid: Absent bruit Progress Note: A&P Assessment and plan (1) Third degree heart block: Status: Acute (2) T2DM (type 2 diabetes mellitus): Status: Acute (3) History of CVA (cerebrovascular accident): Status: Acute Assessment and Plan Assessment and Plan for All Diagnoses:: Complete heart block -3rd degree block noted with multiple episodes of polymorphic vtach -currently has temp pacemaker -Prelim echo shows an estimated EF of 20-25% -Plan to proceed with CTR-D placement today -Patient will need ischemic workup during hospital stay or as outpatient 05/05/2022: s/p supervisor mold shop-d implant. NSR rate of 93 noted. Acute HFrEF-presumed new -Mild chf/volume overload noted on chest xray. Patient was given Lasix and is -2470 -Start Entresto and BB with BP will tolerate. Add aldactone and jardiance later. 05/05/2022: Official echo read- EF 45 with abnormal septal wall motion noted. Start lisinopril 2.5mg daily and bisoprolol 10mg daily. Add jardiance and aldactone at office follow up. Patient needs outpatient ischemic workup. Multiple episodes of NSVT -Currently has temp pacemaker -Anticipate need for bb or antiarrhythmic s/p device placement 05/05/2022: no further events noted. S/p device placement, see above. will start bisoprolol 10mg po daily. DM II -Defer to pcp CVA -Continue statin and aspirin. CV summary 05/05/2022: CV stable for discharge home. Patient is to follow-up in cardiology clinic in 1 week for reevaluation. At
[2022-05-05 11:13] VITALS: BP 90/60; PULSE 89; RESP 20; TEMP 36.9; O2SAT 94
--- NOTE | 2022-05-06 13:42 | CARE MANAGER ---
Attempted post-discharge, phone interview unable to reach this patient as phone number says unreachable.
== END 2022-05-05 18:41 | disposition home or self-care (01) | DRG 242 ==
PROVIDERS: Internal Medicine; Nurse Practitioner Acute Care; Admitting Provider Student in an Organized Health Care Education/Training Program; PCP Family Medicine; Visit Provider Student in an Organized Health Care Education/Training Program
PROC: 5A1223Z Performance of Cardiac Pacing, Continuous (ICD-10-PCS; principal; 2022-05-03 00:30)
PROC: 0JH609Z Insertion of Cardiac Resynchronization Defibrillator Pulse Generator into Chest Subcutaneous Tissue and Fascia, Open Approach (ICD-10-PCS; CPT 33249; principal; 2022-05-04 10:30)
DX: I44.2 Atrioventricular block, complete (principal); I50.21 Acute systolic (congestive) heart failure; E11.9 Type 2 diabetes mellitus without complications; I69.320 Aphasia following cerebral infarction; Z85.07 Personal history of malignant neoplasm of pancreas; F39 Unspecified mood [affective] disorder; I11.0 Hypertensive heart disease with heart failure; F17.200 Nicotine dependence, unspecified, uncomplicated; I47.29 Other ventricular tachycardia
CPT/HCPCS: 33208; 33210; 33225; 36415; 71045; 80048; 80053; 80061; 82962; 83735; 83880; 84100; 84439; 84443; 84484; 85007; 85025; 85610; 93306; 99152; 99153; 99285; C1725; C1769; C1882; C1894; C1895; C1898; C1900; C9803; Q9967; U0003; U0005

== ENCOUNTER → 2022-06-12 06:27 | Outpatient (CLI) | payer MEDICARE, SELFPAY ==
--- NOTE | 2022-06-12 | CA_ITS ---
APPROVED REPORT Exam: Exercise Treadmill Technologist: Jazmine Montes, Ht: 5 ft 11 in Wt: 141 lbs BSA: 1.82 m2 HR: 77 bpm BP: 170/84 mmHg Rhythm: paced rhythm Medical History Medications: Lisinopril,,,,, Aspirin,,,,, Atorvastatin,,,,, Citalopram,,,,, BisOPROLOL Fumarate,,,,, OxYCODONE acetaminophen,,,,, Nortiptyline,,,,, Cardiac Risk Factors: Smoking Stress Test Details Test: LEXISCAN HR Resting HR: 79 bpm Max Heart Rate (APMHR): 153.182503 bpm Max HR Achieved: 99 bpm Target HR (85% APMHR): 130.537968 bpm % of APMHR: 64.71 Recovery HR: 88 bpm BP Resting BP: 170/84 mmHg Max BP: 170/84 mmHg Recovery BP: 147.0/76.0 mmHg ECG Resting ECG: paced rhythm Clinical Exercise duration: 04:02 min Highest Stage Achieved: Exercise capacity: 1.0 METs Stress ECG Conclusion During lexiscan pt experinced no symptoms. Paced rhythm. Non diagnostic EKG. Test Summary REST . . . . . . . Sitting REST 04:41 . . 79 . 170/ 84 . . Stage 1 01:00 . . 90 . . . . Stage 2 01:00 . . 96 . . . . Stage 3 01:00 . . 94 . 146/ 77 . . Stage 4 01:00 . . 90 . 155/ 78 . . Stage 4 01:02 . . 90 . 155/ 78 . Stop exercise at 04:02 RECOVERY 01:00 . . 90 . . . . RECOVERY 02:00 . . 87 . 147/ 76 . . RECOVERY 03:00 . . 87 . 156/ 78 . . RECOVERY 03:57 . . 0 . 156/ 78 . . Electronically signed by : Best Ge MD 06/17/2022 08:12:33
--- NOTE | 2022-06-12 06:33 | NM_ITS ---
APPROVED REPORT Exam: Nuclear Stress Test Indication: DM, FM HX, PACEMAKER, ABN EKG, HEART BLOCK Patient Location: Outpatient Stress Tech: Celerickie Murphy [place] Tech:Sophie PepeMONSE RT(R)(N) Ht: 5 ft 11 in Wt: 140 lbs HR: 79+ bpm BP: 170/84 mmHg BSA: 1.81 m2 TID: 1.21 BMI: 19.5 History: DM, FM HX, PACEMAKER, ABN EKG, HEART BLOCK Procedure: Patient received 0.4 mg of intravenous Lexiscan, resting heart rate 79 bpm, resting blood pressure 170/84 mmHg, with Lexiscan maximum heart rate achieved was 96 bpm which is % of the maximum predicted heart rate and blood pressure was 146/77 mmHg. With Lexiscan, patient denied any complaint of chest pain. Cardiac Stress and Resting SPECT Images: Cardiac Stress and Resting SPECT images were obtained using technetium 99m Myoview 31.4 mCi stress and 9.94 mCi at rest. Stress images reveal severely decreased myocardial activity in the inferior lateral wall with no significant change during rest. Gated images calculated ejection fraction of 40% with inferolateral wall hypokinesis Conclusion: Extensive previous transmural myocardial infarction involving inferior lateral wall accompanied by regional wall motion abnormality and reduced ejection fraction. Electronically signed by : Best Ge MD 06/16/2022 14:12:58
== END ==
LOC: RAD 06:30
PROVIDERS: PCP Family Medicine; Visit Provider Nurse Practitioner
DX: E11.9 Type 2 diabetes mellitus without complications (principal); I50.9 Heart failure, unspecified; R94.31 Abnormal electrocardiogram [ECG] [EKG]; T82.897A Other specified complication of cardiac prosthetic devices, implants and grafts, initial encounter; Z86.73 Personal history of transient ischemic attack (TIA), and cerebral infarction without residual deficits; Z95.810 Presence of automatic (implantable) cardiac defibrillator; R06.02 Shortness of breath
CPT/HCPCS: 78452; 93017; A9502; J2785

== ENCOUNTER 2022-07-23 08:24 | Day surgery (SDC) | payer MEDICARE, SELFPAY ==
[2022-07-23] VITALS (10 sets, daily range): BP systolic 80–147; BP diastolic 62–85; PULSE 76–89; RESP 17–19; TEMP 36.5; O2SAT 94–100; BMI 19.6
--- NOTE | 2022-07-23 07:13 | IR_ITS ---
APPROVED REPORT Patient Location: Inpatient Butter Liquefier: MONSE Bañuelos RT (R) PROCEDURES Left heart catheterization Left ventriculogram Selective coronary angiogram INDICATION High risk abnormal Myoview, Angina pectoris equivalent, Coronary artery disease Informed consent was obtained prior to the procedure. COMPLICATIONS None Estimated Blood Loss: Less than 10 mls TECHNIQUE One percent lidocaine used to anesthetize the right anterior aspect of the wrist. The right radial artery was accessed via the Seldinger technique. A 6 [place] sheath was placed in the right radial artery. 150 mg magnesium sulfate, 800 mcg of nitroglycerin, 1mg Lidocaine and 5000 U Heparin were given through the arterial sheath. The papa catheter was also used to perform left heart catheterization, left ventriculogram and selective coronary angiogram. At the end of the procedure the sheath was removed good hemostasis was achieved using Traclet band, patient was transferred to the postop holding area in stable condition. ANGIOGRAPHIC RESULTS The left main artery Has an ostial 30 to 40% stenosis and a long eccentric distal 40% stenosis The left anterior descending artery Has an ostial 40% stenosis extending from the left main artery with mid vessel 10 to 20% calcified stenoses The circumflex artery Nondominant with an ostial 30 to 40% stenosis The right coronary artery Dominant ostially occluded with the distal segment filling via [id number] collaterals The ROCHA ventriculogram reveals Mild left ventricular dilatation ejection fraction 40 to 45% The left ventricular end-diastolic pressure 15 mmHg IMPRESSION Moderate ostial and distal left main coronary artery disease Moderate LAD disease as described above 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 At this point I favor medical management. While the ostial and distal left main is amenable to stenting I believe medical management is most warranted. 2. Avoidance of tobacco products 3. Maximize antianginal medications 4. LDL less than 55 to be achieved with high intensity statin 5. Consider cardiac rehabilitation Electronically signed by : Best Ge MD 07/23/2022 10:22:49
[2022-07-23 09:07] LABS: Basophils # 0.1 K/mm3 (0-0.2); Basophils % 0.7 % (0.1-2.0); Eosinophils % 7.6 % (0.1-12.0); Hematocrit 48.9 % (42.0-52.0); Hemoglobin 15.2 g/dL (14.1-18.0); Lymphocytes # 4.2 K/mm3 (0.7-4.5); Lymphocytes % 32.5 % (10-50); Mean Corpuscular HGB Conc 31.1 g/dL (31.8-35.4); Mean Corpuscular Hemoglobin 29.1 pg (27.0-31.2); Mean Corpuscular Volume 93.5 fl (80-94); Mean Platelet Volume 7.8 fl (7.4-10.4); Monocytes # 0.9 K/mm3 (0.1-1.0); Neutrophils # 6.7 K/mm3 (1.8-7.8); Neutrophils % 52.2 % (37.0-80.0); Platelet Count 286 K/mm3 (142-424); Red Blood Count 5.23 M/mm3 (4.60-6.20); Red Cell Distribution Width 14.4 % (11.5-17.5); White Blood Count 12.9 K/mm3 (4.8-10.8)
[2022-07-23 09:08] LABS: Chloride 97 mmol/L (98-107); Potassium 3.8 mmoL/L (3.5-5.1); Sodium 139 mmol/L (136-145)
[2022-07-23 09:11] LABS: Anion Gap 18.8 mEq/L (5-15); Blood Urea Nitrogen 16 mg/dl (9-20); Calcium 9.3 mg/dl (8.4-10.2); Carbon Dioxide 27 mmol/L (22.0-30.0); Creatinine Clearance Estimated 65 mL/min (50-200); Estimated Glomerular Filt Rate 84 ml/min (>60); GFR (African American) 102 ML/MIN (>60); Glucose 124 mg/dl (74-100)
[2022-07-23 09:12] LABS: INR 1.01 (0.9-1.1); Prothrombin Time 10.9 seconds (10.1-12.5)
--- NOTE | 2022-07-23 11:45 | PC.NURSE ---
Pt arrived to post-op for recovery, received report from Babita Davila RN at bedside. Pt without C/O, VSS, radial band in place with no bleeding.
--- NOTE | 2022-07-23 12:07 | PC.NURSE ---
Pt eating lunch, no C/O or bleeding, VSS.
== END 2022-07-23 13:38 | disposition home or self-care (01) ==
PROVIDERS: PCP Family Medicine; Visit Provider Internal Medicine
DX: I25.119 Atherosclerotic heart disease of native coronary artery with unspecified angina pectoris (principal); Z86.73 Personal history of transient ischemic attack (TIA), and cerebral infarction without residual deficits; F17.200 Nicotine dependence, unspecified, uncomplicated; I50.9 Heart failure, unspecified; E11.9 Type 2 diabetes mellitus without complications
CPT/HCPCS: 80048; 85025; 85610; 93458; 99152; C1725; C1769; J1644; Q9967